=== PATIENT | male | born 1990 | race African-American/Black ===

== ENCOUNTER 2019-09-12 09:09 | Inpatient (IN) | payer OTHER ==
[~2019-09-12] VITALS: Ht 172.7 cm; Wt 74.0 kg
[2019-09-12 10:16] LABS: BASOPHILS % (AUTO) 0.3 % (0.0-2.0); EOSINOPHILS % (AUTO) 0.7 % (1.0-6.0); HEMATOCRIT 44.1 % (41-53); HEMOGLOBIN 14.7 g/dL (13.5-17.5); LYMPHOCYTES # (AUTO) 2.6 K/uL (1.0-4.8); LYMPHOCYTES % (AUTO) 23.8 % (22.0-44.0); MEAN CORPUSCULAR HEMOGLOBIN 29.2 pg (26.0-34.0); MEAN CORPUSCULAR HGB CONC 33.2 G/dL (31.0-37.0); MEAN CORPUSCULAR VOLUME 88 fL (80-100); MONOCYTES # (AUTO) 1.1 K/uL (0.1-1.0); MONOCYTES % (AUTO) 9.8 % (2.0-9.0); NEUTROPHILS # (AUTO) 7.1 K/uL (1.8-7.7); NEUTROPHILS % (AUTO) 65.4 % (40.0-70.0); PLATELET COUNT (AUTO) 408 K/uL (150-450); RED BLOOD CELL COUNT(AUTO) 5.02 MIL/uL (4.50-5.90); RED CELL DISTRIBUTION WIDTH 13.5 % (11.5-14.5)
[2019-09-12 10:30] LABS: ANION GAP 11 mmol/L (8-16); CALCIUM, TOTAL 9.4 mg/dL (8.8-10.5); CARBON DIOXIDE 25 mmol/L (22-29); CHLORIDE 106 mmol/L (98-107); CREATININE 0.84 mg/dL (0.60-1.30); GLOMERULAR FILTR. RATE CALC > 60 mL/min (>60); GLUCOSE,RANDOM 101 mg/dL (70-110); SODIUM SERUM 142 mmol/L (136-145); UREA NITROGEN, BLOOD 9 mg/dL (7-18)
[2019-09-12 10:38] LABS: ALANINE AMINOTRANSFERASE 45 U/L (12-78); ALBUMIN 3.9 g/dL (3.4-5.0); ALKALINE PHOSPHATASE 122 U/L (46-116); ASPARTATE AMINOTRANSFERASE 31 U/L (15-37); BILIRUBIN,TOTAL 0.3 mg/dL (0.1-1.0); TOTAL PROTEIN, SERUM 7.6 g/dL (6.4-8.2)
[2019-09-12] MEDS: LORazepam 1 MG TABLET PO ONE ×2 (11:59→12:09)
[2019-09-12 12:26] LABS: AMPHET/METH SCREEN,URINE POSITIVE (NEGATIVE); BARBITURATE SCREEN, URINE NEGATIVE (NEGATIVE); BENZODIAZEPINES SCREEN,URINE NEGATIVE (NEGATIVE); CANNABINOID SCREEN,URINE POSITIVE (NEGATIVE); COCAINE SCREEN,URINE NEGATIVE (NEGATIVE); METHADONE SCREEN, URINE NEGATIVE (NEGATIVE); OPIATE SCREEN,URINE NEGATIVE (NEGATIVE); PHENCYCLIDINE SCREEN,URINE NEGATIVE (NEGATIVE)
[2019-09-12] MEDS ORDERED: DiphenhydrAMINE HCL 50 MG/ML VIAL ONE (13:05)
[2019-09-12] MEDS ORDERED: HALOPERIDOL LACTATE 5 MG/ML VIAL ONE (13:06)
[2019-09-12] MEDS ORDERED: HALOPERIDOL LACTATE 5 MG/ML VIAL IM ONE (13:15)
[2019-09-12] MEDS ORDERED: DiphenhydrAMINE HCL 50 MG/ML VIAL IM ONE (13:15)
[2019-09-12] MEDS ORDERED: ZOLPIDEM TARTRATE 10 MG TABLET PO PRN (15:45)
[2019-09-12] MEDS ORDERED: HALOPERIDOL 5 MG TABLET PO PRN (15:45)
[2019-09-12 18:59] VITALS: BP 101/64
[2019-09-13 00:07] VITALS: BP 102/46
[2019-09-13] MEDS ORDERED: INFLUENZA VIRUS VACCINE QVS 2019-20 (3YR+)/PF 60 MCG/0.5 ML SYRINGE IM ONE (00:30)
[2019-09-13 08:19] VITALS: BP 105/71
[2019-09-13] MEDS: LORazepam 2 MG TABLET PO PRN (16:48)
[2019-09-13] MEDS ORDERED: SERTRALINE HCL 50 MG TABLET PO SCH (21:00)
[2019-09-14 05:43] VITALS: BP 109/50
[2019-09-14 08:20] VITALS: BP 132/69
[2019-09-14] MEDS: LORazepam 2 MG TABLET PO PRN (08:27)
[2019-09-14] MEDS ORDERED: SERT50TA12 PO (10:59)
[2019-09-14 17:58] VITALS: BP 132/69
== END 2019-09-14 12:00 | disposition home or self-care (01) | DRG 885 ==
LOC: EMS 09:12 → EDBD 09:12 → B3A 16:07
PROVIDERS: ADMIT Psychiatry & Neurology Psychiatry; ATTEND Psychiatry & Neurology Psychiatry
DX: F33.2 Major depressive disorder, recurrent severe without psychotic features (principal); R45.851 Suicidal ideations; F12.90 Cannabis use, unspecified, uncomplicated; F14.90 Cocaine use, unspecified, uncomplicated; F34.1 Dysthymic disorder; Z91.19 Patient's noncompliance with other medical treatment and regimen
CPT/HCPCS: G0480; J1200; J1630